=== PATIENT | male | born 1990 | race Caucasian/White ===

== ENCOUNTER 2018-02-27 10:42 | Day surgery (SDC) | payer MEDICAID ==
[~2018-02-27] VITALS: Ht 185.4 cm; Wt 78.4 kg
[~2018-02-27 10:42] MED LIST: IBUP-1221 PO
[2018-02-27] MEDS ORDERED: BUPIVACAINE/PF 0.5% ONE ×2 (10:50→10:51)
[2018-02-27] MEDS ORDERED: EPINEPHRINE 1 MG/ML, 1ML ONE (10:50)
[2018-02-27] MEDS ORDERED: LACTATED RINGERS 1,000 ML IV SCH (10:52)
[2018-02-27 11:48] LABS: AMPHETAMINE SCREEN, URINE Negative (Negative); BARBITURATE SCREEN, URINE Negative (Negative); BENZODIAZEPINE SCREEN, URINE Negative (Negative); CANNABINOID SCREEN, URINE Negative (Negative); COCAINE SCREEN, URINE Negative (Negative); METHADONE SCREEN, URINE Negative (Negative); OPIATE SCREEN, URINE Negative (Negative)
[2018-02-27] MEDS ORDERED: FENTANYL PF 250 MCG/5ML ONE (12:40)
[2018-02-27] MEDS ORDERED: CEFAZOLIN 1,000 MG ONE ×2 (12:49)
[2018-02-27] MEDS ORDERED: PROPOFOL 10 MG/ML, 20ML ONE ×2 (12:49)
[2018-02-27] MEDS ORDERED: DEXAMETHASONE 4 MG/ML, 1ML ONE ×2 (12:49)
[2018-02-27] MEDS ORDERED: ONDANSETRON 2MG/ML, 2ML ONE (13:26)
[2018-02-27] MEDS ORDERED: KETOROLAC 30 MG/1 ML ONE (13:26)
[2018-02-27] MEDS ORDERED: HYDROmorphone 2 MG/ML, 1ML ONE ×2 (13:43→14:23)
[2018-02-27] MEDS: MEPERIDINE/PF 25MG/0.5ML IVPush PRN ×2 (14:21→14:33)
[2018-02-27] MEDS ORDERED: OXYcodone 5 MG/5 ML ORAL.SOL UDC ONE (14:23)
[2018-02-27] MEDS ORDERED: MEPERIDINE/PF 50 MG/ML ONE (14:23)
[2018-02-27] MEDS ORDERED: ACETAMINOPHEN 325 MG TABLET PO PRN (14:30)
[2018-02-27] MEDS ORDERED: FENTANYL PF 100 MCG/2ML IV PRN (14:30)
[2018-02-27] MEDS ORDERED: PROMETHAZINE 25 MG/ML, 1ML IV PRN (14:30)
[2018-02-27] MEDS ORDERED: OXYcodone 5 MG/5 ML ORAL.SOL UDC PO PRN (14:30)
[2018-02-27] MEDS ORDERED: ACETAMINOPHEN 650 MG/20.3 ML UDC ONE (14:53)
[2018-02-27] MEDS ORDERED: ACETAMINOPHEN 325 MG TABLET ONE (14:53)
[2018-02-27] MEDS: HYDROmorphone 2 MG/ML, 1ML IV PRN ×3 (14:57→15:15)
== END 2018-02-27 17:07 | disposition home or self-care (01) ==
LOC: OUT 10:42
PROVIDERS: ATTEND Orthopaedic Surgery
DX: S82.832A Other fracture of upper and lower end of left fibula, initial encounter for closed fracture (principal); S83.422A Sprain of lateral collateral ligament of left knee, initial encounter; K21.9 Gastro-esophageal reflux disease without esophagitis; F15.90 Other stimulant use, unspecified, uncomplicated; V29.9XXA Motorcycle rider (driver) (passenger) injured in unspecified traffic accident, initial encounter; Y93.89 Activity, other specified; Y92.89 Other specified places as the place of occurrence of the external cause; Y99.8 Other external cause status; Z79.899 Other long term (current) drug therapy
CPT/HCPCS: 27405; 27784; 64708; 80307; C1713; J0171; J0690; J1100; J1170; J1885; J2175; J2405; J2704; J3010; J3490; J7120